=== PATIENT | male | born 1945 | race Caucasian/White ===

== ENCOUNTER 2017-09-17 12:36 | Day surgery (SDC) | payer MEDICARE, BC ==
[~2017-09-17] VITALS: Ht 172.8 cm; Wt 78.2 kg
[2017-09-17] VITALS (10 sets, daily range): BP systolic 110–123; BP diastolic 67–72; PULSE 56–94; TEMP 98
[~2017-09-17 12:36] MED LIST: ALDACTAZIDE 251 TAB PO; ASPIRIN 32325 MG/TAB PO; ASPIRIN 81M81 MG/TA2 PO; FLEXERIL10 MG PO; IMDUR 60MG60 MG/TAB PO; LIPITOR 80MG80 MG PO; LOPRESSOR 225 MG/TAB PO; MEDROL 4MG DOSPA4 MG PO; MULTIPLE VITAMI1 CAP PO; NITROSTAT0.4 MG/TAB SL; NO HOME MEDICATIONS; NORCO 325 MG-51 TAB PO; ONE DAILY1 TA1 PO; PEPCID 20MG TAB20 MG PO; PERCOCET 500 MG1 TAB PO; PLAVIX 75MG TAB75 MG PO; ZESTRIL2.5 MG PO
[2017-09-17 13:20] LABS: HEMATOCRIT 40.7 % (42.0-52.0); HEMOGLOBIN 13.6 g/dl (13.5-18.0); MEAN CELL VOLUME 90 fl (80.0-100.0); MEAN CORPUSCULAR HEMOGLOBIN 30 pg (27.0-31.0); MEAN CORPUSCULAR HGB CONC 33 g/dl (33.0-37.0); MEAN PLATELET VOLUME 9.8 fl (7.4-10.4); PLATELET COUNT 207 K/mm3 (130-400); RED BLOOD COUNT 4.53 M/mm3 (4.20-5.60); REDCELL DISTRIBUTION WIDTH-CV 12.7 % (11.5-14.5)
[2017-09-17 13:25] LABS: INR 1.2 (0.8-3.0); PROTHROMBIN TIME 13.2 SECONDS (9.7-12.8)
[2017-09-17 13:30] LABS: CALCIUM 9.3 mg/dL (8.4-10.2); CREATININE, serum 1.1 mg/dL (0.66-1.25); POTASSIUM 4.1 mmol/L (3.4-5.0)
== END 2017-09-17 18:22 | disposition home or self-care (01) ==
LOC: COL.CAR 12:36
PROVIDERS: Internal Medicine Interventional Cardiology
DX: I25.10 Atherosclerotic heart disease of native coronary artery without angina pectoris (principal); I21.4 Non-ST elevation (NSTEMI) myocardial infarction; I10 Essential (primary) hypertension; E78.5 Hyperlipidemia, unspecified; Z79.82 Long term (current) use of aspirin; Z79.01 Long term (current) use of anticoagulants; Z95.5 Presence of coronary angioplasty implant and graft; Z82.49 Family history of ischemic heart disease and other diseases of the circulatory system
CPT/HCPCS: J2250; J3010; Q9967

== ENCOUNTER 2018-07-19 02:39 | Emergency (ER) | payer MEDICARE, BC ==
[~2018-07-19] VITALS: Ht 172.7 cm; Wt 81.8 kg
[2018-07-19 02:44] VITALS: TEMP 97.8
[2018-07-19 03:11] LABS: BASO # 0.1 (0.0-0.2); BASO % 0.7 % (0.0-2.0); EOS # 0.4 (0.0-0.7); EOS % 5.6 % (0-4.0); GRAN # 2.8 (1.4-6.5); GRAN % 38.5 % (42.2-75.2); HEMATOCRIT 43.9 % (42.0-52.0); HEMOGLOBIN 14.4 g/dl (13.5-18.0); LYMPH # 3.1 (1.2-3.4); LYMPH % 41.6 % (20.0-51.0); MEAN CELL VOLUME 92 fl (80.0-100.0); MEAN CORPUSCULAR HEMOGLOBIN 30 pg (27.0-31.0); MEAN CORPUSCULAR HGB CONC 33 g/dl (33.0-37.0); MEAN PLATELET VOLUME 10.1 fl (7.4-10.4); MONO % 13.2 % (1.7-9.3); PLATELET COUNT 155 K/mm3 (130-400); RED BLOOD COUNT 4.77 M/mm3 (4.20-5.60); REDCELL DISTRIBUTION WIDTH-CV 12.7 % (11.5-14.5)
[2018-07-19 03:17] LABS: ALANINE AMINOTRANSFERASE 35 U/L (21-72); ALBUMIN 3.9 gm/dL (3.5-5.0); ALKALINE PHOSPHATASE 71 U/L (50-136); ANION GAP 9 mmol/L (7-16); AST,SGOT 34 U/L (15-37); BILIRUBIN,TOTAL 0.5 mg/dL (0.0-1.0); BLOOD UREA NITROGEN 15 mg/dL (9-20); CALCIUM 8.9 mg/dL (8.4-10.2); CARBON DIOXIDE 26 mmol/L (22-30); CHLORIDE 104 mmol/L (98-107); CREATININE, serum 0.97 mg/dL (0.66-1.25); GLUCOSE 95 mg/dL (74-106); LIPASE 143 U/L (23-300); POTASSIUM 4.1 mmol/L (3.4-5.0); SODIUM 138 mmol/L (137-145); TOTAL PROTEIN 7.2 gm/dL (6.4-8.2)
[2018-07-19 03:20] LABS: INR 1.1 (0.8-3.0); PROTHROMBIN TIME 12.6 SECONDS (9.7-12.8)
[2018-07-19 03:32] LABS: TROPONIN-I < 0.012 ng/mL (0.000-0.035)
[2018-07-19 12:19] VITALS: BP 131/81; PULSE 50
== END 2018-07-19 12:23 | disposition short-term general hospital (02) ==
LOC: COL.ER 02:39
PROVIDERS: Emergency Medicine
DX: R07.89 Other chest pain (principal); I25.10 Atherosclerotic heart disease of native coronary artery without angina pectoris; Z90.89 Acquired absence of other organs; Z79.82 Long term (current) use of aspirin; Z79.02 Long term (current) use of antithrombotics/antiplatelets; Z95.9 Presence of cardiac and vascular implant and graft, unspecified
CPT/HCPCS: J1644; J2270; J7030; Q9967

== ENCOUNTER → 2018-12-15 | Outpatient (CLI) | payer MEDICARE, BC | LOC: COL.RAD 09:03 | DX: C61 Malignant neoplasm of prostate (principal) | CPT/HCPCS: A9503 ==

== ENCOUNTER 2020-11-06 12:00 | Day surgery (SDC) | payer MEDICARE, BC ==
[~2020-11-06] VITALS: Ht 172.7 cm; Wt 79.6 kg
[2020-11-06] VITALS (10 sets, daily range): BP systolic 109–141; BP diastolic 61–83; PULSE 54–67; TEMP 98.8–99.2
[~2020-11-06 12:00] MED LIST changes: +CITRACAL + D CA1 TAB PO; +OMEGA-3 1000 MG1 CAP PO; +THE MEDICINE S200 M2 PO; +TOPROL XL100 MG PO; +VITAMIN E1000 U/CAP PO
[2020-11-06] MEDS ORDERED: LIPITOR 40MG TA40 MG PO (12:39)
--- NOTE | 2020-11-06 14:10 | NUR ---
Patient admitted to room 346. Alert & oriented. A little nervous about procedure. Med rec completed. Consent obtained, patient had talked to & verbalized understanding. Ivf started to Ivan. Raulito choe supervisoer started IV. Patietn supportice at bedside. Patient to Or with Or nurse Shala. Will await his return
--- NOTE | 2020-11-06 14:56 | NUR ---
Update given to patient son. Patient Npo 0000. Plans for Or tmrw afternoon, if he continues to have bleeding. Patient resting in bed.
[2020-11-06] MEDS ORDERED: BACTRIM DS 8001 TAB PO (15:05)
--- NOTE | 2020-11-06 17:49 | NUR ---
standing at bedside, denies pain or needs, has had something to eat and tolerated well
--- NOTE | 2020-11-06 19:36 | NUR ---
Patient tolerated dinner. Bragg to DD with orange tinged urine. All discharge paperwork completed. Vss, but O2 sats slightly decrreased. Report to night nurse Lorene
== END 2020-11-06 21:03 | disposition home or self-care (01) ==
LOC: SURG 12:00 → SDCO 12:00
DX: N99.113 Postprocedural anterior bulbous urethral stricture, male (principal); I10 Essential (primary) hypertension; E78.5 Hyperlipidemia, unspecified; I25.10 Atherosclerotic heart disease of native coronary artery without angina pectoris; I25.2 Old myocardial infarction; K21.9 Gastro-esophageal reflux disease without esophagitis; Z92.3 Personal history of irradiation; Z85.46 Personal history of malignant neoplasm of prostate; Z95.818 Presence of other cardiac implants and grafts; Z79.82 Long term (current) use of aspirin; Z79.02 Long term (current) use of antithrombotics/antiplatelets; Z79.899 Other long term (current) drug therapy
CPT/HCPCS: OP; C1769; C1894; J0690; J1100; J2405; J2704; J3010; J7120

== ENCOUNTER 2021-03-18 21:26 | Observation (INO) | payer MEDICARE, BC ==
[~2021-03-18] VITALS: Ht 172.7 cm; Wt 80.7 kg
[~2021-03-18 21:26] MED LIST changes: +BACTRIM DS 8001 TAB PO; +LIPITOR 40MG TA40 MG PO
[2021-03-18 22:36] LABS: COLLECTION METHOD IN
[2021-03-18 22:44] LABS: MUCOUS Present /lpf; PH 6 (5-8); SQUAMOUS EPITHELIAL None Seen /hpf; URINE APPEARANCE Clear; URINE BACTERIA None Seen /hpf; URINE BILIRUBIN Negative (NEGATIVE); URINE BLOOD 1+ (NEGATIVE); URINE COLOR Yellow; URINE GLUCOSE Negative (NEGATIVE); URINE KETONE Negative (NEGATIVE); URINE LEUKOCYTE ESTERASE Negative (NEGATIVE); URINE NITRATE Negative (NEGATIVE); URINE PROTEIN(semi-quant) Negative (NEGATIVE); URINE RBC 20-50 /hpf; URINE UROBILINOGEN Negative (NEGATIVE)
[2021-03-19 01:06] LABS: BASO # 0.1 K/mm3 (0.0-0.2); BASO % 0.7 % (0.0-2.0); EOS # 0.2 K/mm3 (0.0-0.7); GRAN # 5.2 K/mm3 (1.4-6.5); HEMATOCRIT 39.1 % (42.0-52.0); HEMOGLOBIN 13.2 g/dl (13.5-18.0); LYMPH # 1.3 K/mm3 (1.2-3.4); LYMPH % 16.6 % (20.0-51.0); MEAN CELL VOLUME 90 fl (80.0-100.0); MEAN CORPUSCULAR HEMOGLOBIN 30 pg (27.0-31.0); MEAN CORPUSCULAR HGB CONC 34 g/dl (33.0-37.0); MEAN PLATELET VOLUME 9.8 fl (7.4-10.4); MONO # 0.9 K/mm3 (0.1-0.6); MONO % 11.3 % (1.7-9.3); PLATELET COUNT 162 K/mm3 (130-400); RED BLOOD COUNT 4.34 M/mm3 (4.20-5.60); REDCELL DISTRIBUTION WIDTH-CV 13.1 % (11.5-14.5)
--- NOTE | 2021-03-19 01:24 | NUR ---
PT ADMITTED TO ROOM 342 FROM ER. PT AMBULATES TO BED WITH A STEADY GAIT. DENIES PAIN @ THIS TIME. IVF STARTED THROUGH PERIPHERAL IV IN RIGHT FA. PT IS ABLE TO URINATE A SMALL AMOUNT OF URINE INTO URINAL, [address] COLEY NOTIFIED OF PT ADMISSION. NEW ORDERS RECEIVED. PT IS TO REMAIN NPO FOR SURGERY LATER TODAY, PT VERBALIZES UNDERSTANDING. PT ORIENTED TO CALL LIGHT ET VISITOR RESTRICTIONS. DENIES OTHER NEEDS @ THIS TIME. CALL LIGHT WITHIN REACH. Patient care, medication administration and nursing documentation occurred during a Daylight Savings Time Change.
[2021-03-19 01:35] LABS: ALBUMIN 3.7 gm/dL (3.4-4.8); BILIRUBIN,TOTAL 0.6 mg/dL (0.2-1.2); CALCIUM 9.2 mg/dL (8.4-10.2); CREATININE, serum 1.01 mg/dL (0.72-1.25); POTASSIUM 4.1 mmol/L (3.5-4.5); TOTAL PROTEIN 6.5 gm/dL (6.2-8.1)
[2021-03-19 01:45] VITALS: BP 127/66; PULSE 52; TEMP 97.5
[2021-03-19 03:45] VITALS: BP 121/59; PULSE 63; TEMP 98
--- NOTE | 2021-03-19 04:40 | NUR ---
CLINICAL AIDE REPORTS THAT PT HAD VOIDED 200 ML. PT IS AWAKENED FOR BLADDER SCAN ET STATES THAT HE HAS VOIDED MORE SINCE CLINICAL AIDE LEFT ROOM. THERE IS 150 ML CLEAR YELLOW URINE IN URINAL. PT IS BLADDER SCANNED ET SHOWS POST VOID RESIDUAL OF 62 ML. PT STATES THAT HE FEELS THOUGH HE COULD STILL VOID SOME MORE. DENIES PAIN ET ABDOMEN IS SOFT TO PALPATE. PT DENIES OTHER NEEDS. CALL LIGHT WITHIN REACH.
--- NOTE | 2021-03-19 08:00 | NUR ---
DR.DEVINE DEMPSEY. PATIENT WAS ABLE TO VOID THROUGH THE NIGHT. EKG MANAGER REPORTS 400CC OF URINE OVERNIGHT. SURGERY CANCELED. SEE ORDERS.
--- NOTE | 2021-03-19 10:30 | NUR ---
PATIENT'S HERE. PATIENT GIVEN DISCHARGE INSTRUCTIONS. IV ALREADY DC'D THIS AM. PATIENT IS DRESSED, PACKED AND DISCHARGED VIA AMBULATORY TO PERSONAL VEHICLE WITH .
--- NOTE | 2021-03-19 11:49 | NUR ---
Late entry: Plan is to return home with Jade . will transport home. SW met with patient about care. Patient denies having an care concerns. [place] r[place]orts that they reside locally and alternate EMR contact is Shania Frias . POA is . PCP is Dr. Yoder last appointment a month ago. Also sees Dr. Sifuentes and obtains medications from [facility] at [facility]. No DME use noted. Educated on services available to him. NF>
== END 2021-03-19 10:30 | disposition home or self-care (01) ==
LOC: COL.ER 21:26 → SURG 03-19 00:31
PROVIDERS: Emergency Medicine; ADMIT Urology
DX: N35.819 Other urethral stricture, male, unspecified site (principal); I25.10 Atherosclerotic heart disease of native coronary artery without angina pectoris; E78.5 Hyperlipidemia, unspecified; I11.9 Hypertensive heart disease without heart failure; Z90.89 Acquired absence of other organs; Z85.46 Personal history of malignant neoplasm of prostate; Z79.82 Long term (current) use of aspirin; Z79.899 Other long term (current) drug therapy; Z79.02 Long term (current) use of antithrombotics/antiplatelets
CPT/HCPCS: G0378; J2270; J7030

== ENCOUNTER → 2021-04-20 | Outpatient (CLI) | payer MEDICARE, BC | LOC: COL.RAD 08:30 | DX: N35.819 Other urethral stricture, male, unspecified site (principal) | CPT/HCPCS: Q9967 ==

== ENCOUNTER 2023-05-02 00:17 | Inpatient (IN) | payer MEDICARE, BC ==
[~2023-05-02] VITALS: Ht 175.3 cm; Wt 88.8 kg
[2023-05-02] VITALS (208 sets, daily range): BP systolic 83–108; BP diastolic 51–86; PULSE 86–97; TEMP 98–99.4; O2SAT 92–99
[~2023-05-02 00:17] MED LIST changes: -ONE DAILY1 TA1 PO; +ONE-A-DAY MEN'S1 TAB PO
[2023-05-02 00:49] LABS: COLLECTION METHOD CLEAN CATCH
[2023-05-02 00:59] LABS: AMORPHOUS CRYSTAL Present (NOT PRESENT); PH 8.5 (5.0-8.5); SQUAMOUS EPITHELIAL 0-2 /hpf (0-10); URINE APPEARANCE Clear (CLEAR/HAZY); URINE BLOOD TRACE-INTACT (NEGATIVE); URINE COLOR Yellow (YELLOW); URINE GLUCOSE Negative (NEGATIVE); URINE KETONE Negative (NEGATIVE); URINE NITRATE Negative (NEGATIVE); URINE PROTEIN(semi-quant) TRACE (NEGATIVE); URINE RBC 0-2 /hpf (0-2); URINE UROBILINOGEN 0.2 E.U/dL (0.2-1.0)
[2023-05-02 01:00] LABS: URINE BACTERIA Rare /hpf (NONE SEEN)
[2023-05-02 01:06] LABS: BASO % 0.6 % (0.0-2.0); EOS # 0.1 K/mm3 (0.0-0.7); EOS % 1.7 % (0.0-4.0); GRAN # 6.4 K/mm3 (1.4-6.5); GRAN % 92.9 % (42.2-75.2); HEMOGLOBIN 13.2 g/dl (13.5-18.0); LYMPH # 0.3 K/mm3 (1.2-3.4); LYMPH % 3.8 % (20.0-51.0); MEAN CELL VOLUME 93 fl (80.0-100.0); MEAN CORPUSCULAR HEMOGLOBIN 31 pg (27-31); MEAN CORPUSCULAR HGB CONC 33 g/dl (33.0-37.0); MEAN PLATELET VOLUME 9.4 fl (7.4-10.4); MONO % 0.4 % (1.7-9.3); PLATELET COUNT 159 K/mm3 (130-400); RED BLOOD COUNT 4.31 M/mm3 (4.20-5.60); REDCELL DISTRIBUTION WIDTH-CV 12.3 % (11.5-14.5)
[2023-05-02 01:10] LABS: INR 1.2 (0.8-3.0); PROTHROMBIN TIME 13.1 SECONDS (9.7-12.8)
[2023-05-02 01:13] LABS: PARTIAL THROMBOPLASTIN TIME 25.8 SECONDS (26.0-37.0)
[2023-05-02 01:22] LABS: ALANINE AMINOTRANSFERASE 22 U/L (0-55); ALBUMIN 3.6 gm/dL (3.4-4.8); ALKALINE PHOSPHATASE 87 U/L (40-150); ANION GAP 11 mmol/L (7-16); AST,SGOT 22 U/L (5-34); BLOOD UREA NITROGEN 21 mg/dL (8-26); CALCIUM 9.1 mg/dL (8.4-10.2); CARBON DIOXIDE 23 mmol/L (23-31); CHLORIDE 105 mmol/L (98-107); CREATININE, serum 1.48 mg/dL (0.72-1.25); GLUCOSE 157 mg/dL (70-99); LIPASE 38 U/L (8-78); SODIUM 139 mmol/L (136-145)
[2023-05-02 01:27] LABS: TROPONIN-I < 0.010 ng/mL (0.00-0.033)
[2023-05-02 01:38] LABS: BILIRUBIN,TOTAL 0.5 mg/dL (0.2-1.2)
[2023-05-02 05:35] LABS: CALCIUM 8.6 mg/dL (8.4-10.2); CREATININE, serum 1.68 mg/dL (0.72-1.25); POTASSIUM 4.4 mmol/L (3.5-4.5)
--- NOTE | 2023-05-02 06:30 | NUR ---
Over the night the pt started have increase RR. Around 0220 the pt's RR was going into high 30's. The pt looked to be in distress and having increase effort in breathing. Pt's lung sounds were tight and had some crackles. Hospitalist was notified and RT was called. A chest XRAY was done. A BiPAP was placed on the pt and it was in CPAP mode at 25%. Dilaudid was given to help relex the pt and help with the pain in the abd and the bladder area. The RR then went to the 20's and the pt looked more relaxed. The pt's abd looked more distended and more firm throughout the night. Hospitalist was notified and GAS-X and milk of mag to help with what we were thinking is some gas pains that was in his upper quadrant. Pt still on the BIPAP at this time and SPO2 is in the 90's. Pt still on levophed in an 18 G peripheral IV. There were no signs of discolration, pulses were felt, and good cap refill throughout the night. Will recommend to have a PICC placed to day shift nurse that will take over. Pt's other vitals were stable throughout the night. Pt on CBI and currently running on bag 9. Will pass this onto the day shift nurse in report.
--- NOTE | 2023-05-02 10:55 | NUR ---
Patient to room 307 from the ED. Alert, but drowsy. at the bedside. VSS. Elevated temperature, doctor aware. IV CDI, fluids infusing. Denies pain and discomfort. Patient NPO. No further needs expressed. Call light within reach. Bed alarm on
[2023-05-02] MEDS ORDERED: TYLENOL 500MG500 MG PO (11:06)
--- NOTE | 2023-05-02 11:10 | NUR ---
DEBORAH Medrano notified of patients blood pressure and not setting up ARTIFICIAL PLASTIC EYE MAKER. DEBORAH Medrano hold ARTIFICIAL PLASTIC EYE MAKER and will monitor blood pressure.
[2023-05-02 20:43] LABS: MEAN CELL VOLUME 95 fl (80.0-100.0); MEAN CORPUSCULAR HGB CONC 32 g/dl (33.0-37.0); MEAN PLATELET VOLUME 10.6 fl (7.4-10.4); PLATELET COUNT 110 K/mm3 (130-400); RED BLOOD COUNT 3.41 M/mm3 (4.20-5.60); REDCELL DISTRIBUTION WIDTH-CV 13.2 % (11.5-14.5)
[2023-05-02 20:51] LABS: HEMATOCRIT 32.4 % (42.0-52.0); HEMOGLOBIN 10.5 g/dl (13.5-18.0); MEAN CORPUSCULAR HEMOGLOBIN 31 pg (27-31)
[2023-05-02 20:55] LABS: ALBUMIN 2.5 gm/dL (3.4-4.8); BILIRUBIN,TOTAL 0.6 mg/dL (0.2-1.2); CALCIUM 7.3 mg/dL (8.4-10.2); POTASSIUM 4.4 mmol/L (3.5-4.5); TOTAL PROTEIN 5.2 gm/dL (6.2-8.1)
[2023-05-03] VITALS (1086 sets, daily range): BP systolic 85–160; BP diastolic 52–82; PULSE 67–92; TEMP 97.7–98.1; O2SAT 71–100
--- NOTE | 2023-05-03 02:31 | NUR ---
Received report from Mary RN from medical floor at 1923. Pt arrived on unit at 1930 and received bedside report from ACCOUNTANT BOOKKEEPER. Pt was started on levophed at 1934 due to low BP. Pt's RR was in the 20's. Pt on LR for fluids. Was irrigating the crawford about Q30min due to little to no output and Dr. Parisi did not want to do CBI yet and did not want to remove the crawford to place a new one in for the CBI due to the pt having a procedure at [facility] on uretha. Pt complained of pain at a 6-7 out of 10 in the bladder area and was having soem distention upon arrival. Pt on 3 L O2 via NC upon arrival and sating in the 90's.
[2023-05-03 04:47] LABS: HEMOGLOBIN 10.8 g/dl (13.5-18.0); MEAN CELL VOLUME 96 fl (80.0-100.0); MEAN CORPUSCULAR HEMOGLOBIN 31 pg (27-31); MEAN CORPUSCULAR HGB CONC 32 g/dl (33.0-37.0); MEAN PLATELET VOLUME 10.5 fl (7.4-10.4); PLATELET COUNT 106 K/mm3 (130-400); RED BLOOD COUNT 3.51 M/mm3 (4.20-5.60); REDCELL DISTRIBUTION WIDTH-CV 13.4 % (11.5-14.5)
[2023-05-03 05:00] LABS: HEMATOCRIT 33.6 % (42.0-52.0)
[2023-05-03 05:03] LABS: ALBUMIN 2.5 gm/dL (3.4-4.8); BILIRUBIN,TOTAL 0.7 mg/dL (0.2-1.2); CALCIUM 7.4 mg/dL (8.4-10.2); CREATININE, serum 2.64 mg/dL (0.72-1.25); MAGNESIUM 1.3 mg/dL (1.6-2.6); PHOSPHOROUS 3.9 mg/dL (2.3-4.7); POTASSIUM 5.3 mmol/L (3.5-4.5); TOTAL PROTEIN 5.5 gm/dL (6.2-8.1)
[2023-05-03 06:27] LABS: BAND 42 % (0-10); LYMPHOCYTE 3 % (20.0-51.0); METAMYELOCYTE 3 % (0-0); NEUTROPHILS 50 % (42.0-75.2)
[2023-05-03 06:30] LABS: PLATELET ESTIMATE NORMAL (NORMAL)
--- NOTE | 2023-05-03 06:30 | NUR ---
Over the night the pt started tto have increased RR. Around 0220 the pt's RR was going into the high 30's. The pt looked to be in distress and having an increase effort in breathing. The pt's lung sounds were tight and had some crackles. Hospitalist was notified and RT was called. A chest XRAYU was done. A BiPAP was placed on the pt and it was in CPAP at 25%. Dilaudid was given to help relax the pt and help with the pain in the abd and the bladder area. The RR then went to the 20's and the pt looked more relaxed. The pt;s abd looked more distended and more firm throughout the night. Hospitalist was notified and GAS-X and milk of mag to help with what we were thinging is some gas pains that was in his upper quadrant of the abd. Pt is still on the BiPAP at this time and the SPO2 is in the 90's. Pt is still on levophed via the 18G peripheral IV. There wee no signs of discoloration, pulses were felt, and there were good cap. refill around the arm and area. Hospitalist knows about the levophed going through the peripheral IV at the rate it was running at throughout the night and wanted to want for a central line for the morning. Will recommend to have a PICC placed to day shift nurse that will take over. Pt's other vitals were stable throughout the night. Pt on CBI na currently running on bag 9. Will pass this onto the day shift nruse in report.
--- NOTE | 2023-05-03 06:55 | NUR ---
When pt arrived on the unit, shiftman hospitalist was giving pushes of epi. While levophed was being started. He gave 10 mcg IV boluses of epi x6. 10 mcg bolus of epi was given at 5, 1930, 193, 1944, 1952, and 1999.
--- NOTE | 2023-05-03 07:50 | NUR ---
Report recieved from TYRESE Sharma. Reviewed labs and IV gtts. Dr. Parisi arrived at bedside about 0730 and irrigated catheter. CBI infusing, bags 01/20 currently hanging. Red urine with clots noted. Pt on bipap intially, placed on 3L NC when Dr. Parisi arrived. Call light within reach. Will continue with POC.
--- NOTE | 2023-05-03 12:57 | NUR ---
wine cellar worker met with patient's spouse, Chan, as patient was using the rest room. Spouse states that patient is very independent with his activities of daily living and will return home upon discharge. Chan states that patient's primary care provider is Dr Yoder and that patient has Medicare A/B and BCBS as secondary. Spouse has been ill and states that she has family members arriving for the holidays. Chan denies concerns or unmet needs regarding discharge to home. Chan states that patient has advance directives and that they should be on file with the hospital. Discharge plan: Home with spouse.
--- NOTE | 2023-05-03 13:49 | NUR ---
Pt conitnueing to c/o abdominal pain after meds were given. Notified Dr Bryant again and new orders for xray and carafate received. EKG preformed and labs being drawn. Abdomin is distended, firm and tender to palpate. Pt up frequently to try and have BM. Pt had small, mucous BM without much relief. Awaiting results of xray and will call Dr. Bryant again.
--- NOTE | 2023-05-03 15:18 | NUR ---
Pt ambulated hallway with PT and this RN. Pt tolerated well, states he has some relief with ambulation and would like to ambulate again later.
--- NOTE | 2023-05-03 19:30 | NUR ---
RECEIVED REPORT FROM TYRESE ABREU. PATIENT CURRENTLY HAS CONTINUOUS BLADDER IRRIGATION GOING. PATIENT HAS LEVOPHED AND FLUIDS GOING IN 2 OF HIS 3 IV SITES. FAMILY IS AT BEDSIDE. UPDATE WAS GIVEN. CALL LIGHT WITHIN REACH. HYPOTENSIVE BUT VITAL SIGNS ARE OTHERWISE STABLE.
[2023-05-04] VITALS (661 sets, daily range): BP systolic 87–141; BP diastolic 50–76; PULSE 73–102; TEMP 98–98.6; O2SAT 80–100
[2023-05-04 05:43] LABS: HEMOGLOBIN 10.2 g/dl (13.5-18.0); MEAN CORPUSCULAR HEMOGLOBIN 31 pg (27-31); MEAN CORPUSCULAR HGB CONC 34 g/dl (33.0-37.0); MEAN PLATELET VOLUME 10.5 fl (7.4-10.4); PLATELET COUNT 83 K/mm3 (130-400); RED BLOOD COUNT 3.32 M/mm3 (4.20-5.60); REDCELL DISTRIBUTION WIDTH-CV 13.2 % (11.5-14.5)
[2023-05-04 05:46] LABS: HEMATOCRIT 30.2 % (42.0-52.0); MEAN CELL VOLUME 91 fl (80.0-100.0)
[2023-05-04 06:00] LABS: ALBUMIN 2.3 gm/dL (3.4-4.8); CALCIUM 8.2 mg/dL (8.4-10.2); CREATININE, serum 1.82 mg/dL (0.72-1.25); PHOSPHOROUS 2.6 mg/dL (2.3-4.7)
[2023-05-04 06:05] LABS: BAND 26 % (0-10); LYMPHOCYTE 4 % (20.0-51.0); NEUTROPHILS 67 % (42.0-75.2)
[2023-05-04 06:06] LABS: PLATELET ESTIMATE NORMAL (NORMAL)
--- NOTE | 2023-05-04 07:00 | NUR ---
Report received from TYRESE Melendez; patient currently up in chair with CBI in place. Patient is on levophed and IV fluids running through peripheral lines. Patient is on room air and has no other lines or tubes in place at this time. Patient's vital signs are within normal limits this morning.
[2023-05-04] MEDS ORDERED: PLAVIX 75MG TAB75 MG PO (10:14)
[2023-05-04] MEDS ORDERED: TOPROL XL100 MG PO (10:18)
--- NOTE | 2023-05-04 11:49 | NUR ---
Data: Patient's Family accepted Combination Machine Tender visit offered during Combination Machine Tender rounds. Assessment: Family (, Sister, Daughter) were in the ICU waiting area. They were waiting for information from the doctor. They sounded hopeful. recognizes a need for self-care. Plan of Care: Combination Machine Tender prayed for healing and for strength. Family was going to wait for information from the doctor. After speaking with the doctor, they all plan to go to the 's home for lunch. stated that she "needs a break from all of this."
--- NOTE | 2023-05-04 12:45 | NUR ---
Reported off to TYRESE Prabhakar; patient taken upstairs in wheelchair by TYRESE Prabhakar and a tech from the surgical floor. Patient remained on CBI and both bags that were hanging were accounted for in the I&Os; catheter bag was to be included once upstairs in new room. Patient was sent up with all belongings to room 327; patient's is aware of new room number. Patient was in stable condition and all vital signs were within normal limits upon transfer.
--- NOTE | 2023-05-04 17:34 | NUR ---
PATIENT STILL COMPLAINING OF RIGHT SIDED FLANK PAIN. PATIENT HAD R. STONE REMOVED ON THE , WAS SUCCESSFUL, BUT HAS REMAINED ON CBI DUE TO CYSTITIS, BLOOD AND CLOTTING IN URINE. PATIENT HAS ONLY PASSED ONE SMALL CLOT SINCE BEING ON SURGICAL FLOOR. NURSING GAVE 0.125MG OF LEVSIN FOR BLADDER SPASMS, AND 1 TAB PERCOCET. PATIENT IS NOW NAPPING IN RECLINER. PATIENT CALL LIGHT NEXT TO PATIENT.
[2023-05-05] VITALS (11 sets, daily range): BP systolic 107–133; BP diastolic 65–79; PULSE 81–99; TEMP 98–99.3
--- NOTE | 2023-05-05 06:36 | NUR ---
pt requiring levsin and percocet for spasms of severe pain, pt has been up to bathroom and walked in halls several times this shift, urine in crawford peach colored with occas. small clots, CBI continues, rate significantly slowed at beginning of shift. pt has had some episodes of wheezing, with ambulating, and has had increased BLE edema, fluids stopped, iv to INT.
--- NOTE | 2023-05-05 07:00 | NUR ---
PT RESTING IN THE CHAIR. PT IS ORIENTED BUT SLEEPY. PT STATES HE IS FEELING MUCH BETTER AFTER HIS PERCOCET. PT IS ON RA. PT IS SR ON TELE. PT'S CBI DRAINING PINK CLEAR URINE. PT HAS CALL LIGHT AND INSTRUCTED TO CALL WITH ALL NEEDS.
[2023-05-05 08:24] LABS: MEAN CELL VOLUME 91 fl (80.0-100.0); MEAN CORPUSCULAR HGB CONC 34 g/dl (33.0-37.0); MEAN PLATELET VOLUME 10.9 fl (7.4-10.4); PLATELET COUNT 88 K/mm3 (130-400); RED BLOOD COUNT 3.17 M/mm3 (4.20-5.60); REDCELL DISTRIBUTION WIDTH-CV 13.3 % (11.5-14.5)
[2023-05-05 08:26] LABS: HEMATOCRIT 28.8 % (42.0-52.0); HEMOGLOBIN 9.8 g/dl (13.5-18.0); MEAN CORPUSCULAR HEMOGLOBIN 31 pg (27-31)
[2023-05-05 08:41] LABS: ALBUMIN 2.2 gm/dL (3.4-4.8); CALCIUM 8.4 mg/dL (8.4-10.2); CREATININE, serum 1.52 mg/dL (0.72-1.25); PHOSPHOROUS 1.9 mg/dL (2.3-4.7); POTASSIUM 3.9 mmol/L (3.5-4.5)
[2023-05-05 09:10] LABS: BAND 19 % (0-10); EOSINOPHIL 5 % (0-4); LYMPHOCYTE 7 % (20.0-51.0); NEUTROPHILS 67 % (42.0-75.2); PLATELET ESTIMATE DECREASED (NORMAL)
[2023-05-05 09:12] LABS: HYPOCHROMIA 1+
--- NOTE | 2023-05-05 11:21 | NUR ---
1000-AFTER PT RETURNED TO ROOM FROM WALK, HE BEGAN COMPLAINING OF BLADDER SPASMS. PT AND CBI ASSESSED. CBI APPEARED TO NOT BE DRAINING. MERA MANUALLY IRRIGATED. MORE REDDENED URINE WITH CLOTS DRAINED. CBI RE-ATTACHED. MERA DRAINIG PINK URINE.
[2023-05-05 11:31] LABS: PARTIAL THROMBOPLASTIN TIME 26.6 SECONDS (26.0-37.0)
--- NOTE | 2023-05-05 15:17 | NUR ---
1330-AFTER PT AMBULATED TO THE RESTROOM HE COMPLAINED OF BLADDER SPASMS. CBI NO LONGER DRAINING WELL. MERA MANUALLY IRRIGATED AT LENGTH. 3-4 CLOTS REMOVED. CBI REPLACED AND MERA DRAINING CLEAR PINK URING. NOTIFIED OF ABOVE AND OF HEPARIN DRIP STARTING THIS AM. STATES TO CONTINUE TO MANUALLY IRRIGATE NEEDED.
--- NOTE | 2023-05-05 17:30 | NUR ---
PT'S XA LEVEL VERY LOW. CLARIFIED WITH Hayden ARREOLA BECAUSE PER PROTOCOL PT SHOULD HAVE A HEPARIN BOLUS AND INCREASE OF RATE. PER UROLOGY THEY DID NOT WANT AN INITIATION BOLUS. PER Hayden ARREOLA WILL NOT BOLUS BUT ONLY INCREASE RATE AND MONITOR XA.
--- NOTE | 2023-05-05 18:01 | NUR ---
PT UP TO RESTROOM FOR BM. MERA CATHETER CLOTTED OFF. PT BACK IN BED AND MANUALLY IRRIGATED AT LENGTH. TWO SMALL AND ONE LARGE CLOT REMOVED. CBI REATTACHED AND TITRATED. URINE NOW CLEAR PINK.
[2023-05-06] VITALS (11 sets, daily range): BP systolic 114–148; BP diastolic 62–79; PULSE 70–85; TEMP 98–99.3
--- NOTE | 2023-05-06 06:30 | NUR ---
URINE OUTPUT HAS CLEARED TO LIGHT YELLOW, CLEAR FLUID, PT WORRIED THAT HE "IS CLOGGED UP WITH CLOTS" IRRIGATED CATHETER WITH 20CC STERILE H2O, HAD 3 SMALL CLOTS OUT, URINE NOW PEACH COLORED. PT HAS BEEN UP IN RECLINER ALL SHIFT, WITH FEET ELEVATED, DECIDED TO LAY IN BED NOW WITH FEET UP. AND FEELING A LITTLE BETTER. PAIN CONTROLLED WITH PO PAIN MEDS.
--- NOTE | 2023-05-06 07:53 | NUR ---
Patient resting in bed. Up to the bathroom this am, did have Bm, but complaints of bladder spasms. He is not yet due for levsin or percoet. Flomax given and hand irrigation completed & vlots obtained and patient feeling better after. Breakfast order, patient denies nausea. Scs Ble. Awaiting labs results, will monitor heparin drip closely
[2023-05-06 07:57] LABS: BASO # 0.1 K/mm3 (0.0-0.2); BASO % 0.8 % (0.0-2.0); EOS # 0.5 K/mm3 (0.0-0.7); EOS % 4.2 % (0.0-4.0); GRAN # 8.9 K/mm3 (1.4-6.5); MEAN CELL VOLUME 91 fl (80.0-100.0); MEAN CORPUSCULAR HGB CONC 34 g/dl (33.0-37.0); MEAN PLATELET VOLUME 10.2 fl (7.4-10.4); MONO # 1.4 K/mm3 (0.1-0.6); MONO % 11.7 % (1.7-9.3); PLATELET COUNT 87 K/mm3 (130-400); RED BLOOD COUNT 3.15 M/mm3 (4.20-5.60); REDCELL DISTRIBUTION WIDTH-CV 13.5 % (11.5-14.5)
[2023-05-06 08:09] LABS: HEMATOCRIT 28.8 % (42.0-52.0); HEMOGLOBIN 9.7 g/dl (13.5-18.0); MEAN CORPUSCULAR HEMOGLOBIN 31 pg (27-31)
[2023-05-06 08:22] LABS: ALBUMIN 2.2 gm/dL (3.4-4.8); CALCIUM 8.5 mg/dL (8.4-10.2); CREATININE, serum 1.26 mg/dL (0.72-1.25); MAGNESIUM 1.8 mg/dL (1.6-2.6); POTASSIUM 3.8 mmol/L (3.5-4.5)
--- NOTE | 2023-05-06 08:30 | NUR ---
Heparin drip adjusted per protocol. Patient sleeping. Will monitor
--- NOTE | 2023-05-06 09:52 | NUR ---
Family at bedside, questions as answered. Patient sleeping, tolerated breakfast.
--- NOTE | 2023-05-06 18:17 | NUR ---
Patient resting in bed. He has been able to rest today comfortably. was at bedside throughout the day. Hand irrigation completed after being up to the bathroom this afternoon & clots obtained. Patient was able to walk the halls late this afternoon without any clotting issues. Cbi continues at a slow rate. Light pink to light yellow. Heparin drip as ordered, next hep x level scheduled for 2029. Report to be given to vika
[2023-05-07] VITALS (13 sets, daily range): BP systolic 116–151; BP diastolic 63–78; PULSE 73–89; TEMP 97.4–98.3
[2023-05-07 04:58] LABS: MEAN CELL VOLUME 91 fl (80.0-100.0); MEAN CORPUSCULAR HGB CONC 34 g/dl (33.0-37.0); MEAN PLATELET VOLUME 10.9 fl (7.4-10.4); PLATELET COUNT 95 K/mm3 (130-400); REDCELL DISTRIBUTION WIDTH-CV 13.6 % (11.5-14.5)
[2023-05-07 05:09] LABS: HEMATOCRIT 25.5 % (42.0-52.0); HEMOGLOBIN 8.6 g/dl (13.5-18.0); MEAN CORPUSCULAR HEMOGLOBIN 31 pg (27-31)
[2023-05-07 05:13] LABS: CALCIUM 8.4 mg/dL (8.4-10.2); CREATININE, serum 1.18 mg/dL (0.72-1.25); MAGNESIUM 1.7 mg/dL (1.6-2.6); PHOSPHOROUS 3.2 mg/dL (2.3-4.7); POTASSIUM 3.6 mmol/L (3.5-4.5)
[2023-05-07 05:49] LABS: BAND 14 % (0-10); EOSINOPHIL 7 % (0-4); LYMPHOCYTE 6 % (20.0-51.0); METAMYELOCYTE 1 % (0-0); NEUTROPHILS 62 % (42.0-75.2); PLATELET ESTIMATE NORMAL (NORMAL)
--- NOTE | 2023-05-07 06:20 | NUR ---
heparin gtt currently at 17 cc/hr per PIV in LAC. LFA INT patent/secure. next hepXa due at 1130. CBI running at a slower rate, urine mostly clear, yellow when pt stays in bed, however, when he gets up and walks to restroom and sits on stool for bowel movement, he will pass 2-3 dark, red, moderate sized clots, has happened twice this shift, pt wanted irrigated this am, RN irrigated crawford with 30 cc sterile h2o, no clots or blood noted. pain controlled with po percocet and levsin. decreased scrotal and BLE edema noted this am.
--- NOTE | 2023-05-07 18:08 | NUR ---
PT HAS SPONTANEOUSLY URINATED THROUGHOUT THE SHIFT WITHOUT ANY DIFFICULTY. HE DOES REPORT THAT HE FEELS LIKE HIS BLADDER SPASMS OCCUR WHEN HE INITIATES URINATION; HE HAS CHRONIC BLADDER SPASMS.
--- NOTE | 2023-05-07 19:03 | NUR ---
report received from mohini muñiz. pt resting in recliner with heparin running to left ac at 16ml/hr. pt tolerating well. pt denies pain at this time. pt reporting urination without issue. call light in reach. all needs met at this time.
--- NOTE | 2023-05-07 21:14 | NUR ---
pt hepxa resulted as 0.35. pt rate will continue as 16ml/hr per orders. pt remains asymptomatic without issue. call light in reach. all needs met at this time.
--- NOTE | 2023-05-07 23:43 | NUR ---
shift assessment complete, see documentation. pt requested prn percocet at 2200 with hs medications for 3/10 pain. pt also requested prn levsin for bladder spasms. pt stated both gave him relief. pt has completed iv abx. pt left ac iv int. heparin continues running at 16ml/hr without issue. pt ambulating well ind. call light in reach. all needs met at this time.
[2023-05-08] VITALS (13 sets, daily range): BP systolic 129–155; BP diastolic 65–83; PULSE 73–91; TEMP 97.7–98.7
[2023-05-08 03:10] LABS: MEAN CELL VOLUME 92 fl (80.0-100.0); MEAN CORPUSCULAR HGB CONC 33 g/dl (33.0-37.0); MEAN PLATELET VOLUME 10.8 fl (7.4-10.4); PLATELET COUNT 136 K/mm3 (130-400); RED BLOOD COUNT 3.13 M/mm3 (4.20-5.60); REDCELL DISTRIBUTION WIDTH-CV 13.5 % (11.5-14.5)
[2023-05-08 03:18] LABS: HEMATOCRIT 28.7 % (42.0-52.0); HEMOGLOBIN 9.4 g/dl (13.5-18.0); MEAN CORPUSCULAR HEMOGLOBIN 30 pg (27-31)
--- NOTE | 2023-05-08 03:41 | NUR ---
pt hepxa came back as 0.47. pt heparin running 15ml/hr per orders. pt still tolerating well without issue. call light in reach. all needs met at this time.
[2023-05-08 03:52] LABS: ALBUMIN 2.3 gm/dL (3.4-4.8); CALCIUM 8.8 mg/dL (8.4-10.2); MAGNESIUM 1.7 mg/dL (1.6-2.6); PHOSPHOROUS 3.6 mg/dL (2.3-4.7); POTASSIUM 3.5 mmol/L (3.5-4.5)
[2023-05-08 04:13] LABS: CREATININE, serum 1.24 mg/dL (0.72-1.25)
[2023-05-08 05:28] LABS: BAND 7 % (0-10); EOSINOPHIL 1 % (0-4); LYMPHOCYTE 11 % (20.0-51.0); METAMYELOCYTE 2 % (0-0); NEUTROPHILS 72 % (42.0-75.2); PLATELET ESTIMATE NORMAL (NORMAL)
--- NOTE | 2023-05-08 08:40 | NUR ---
contacted lab about pts 0800 hepxa lab draw, reported not obtaining lab due to pt ambulating in the halls. will be up to draw lab soon
--- NOTE | 2023-05-08 09:30 | NUR ---
lead web developer reported to this nurse that she is unable to draw hepxa due to unable to find vein, they reported to insurance sales supervisor to attempt blood draw.
--- NOTE | 2023-05-08 09:37 | NUR ---
stage set up worker completed IM from Medicare. SW provided copy to pt and original in chart.
--- NOTE | 2023-05-08 09:55 | NUR ---
pt a&ox3 resting in recliner. pt denies stool softeners this morning due to having diarrhea. vss and tele in place. pt requesting pain medication to be given around 1015. INT to left ac patent. INT to right forearm w heparin gtt infusing. pt denies needs at this time. call light in reach.
--- NOTE | 2023-05-08 11:47 | NUR ---
heparin gtt rate decreased by 1ml/hr, new rates is 14ml/hr.
--- NOTE | 2023-05-08 17:04 | NUR ---
brewery worker was notified by Dr. Martino, patient may benefit from home health services. SW will follow up with patient.
--- NOTE | 2023-05-08 19:07 | NUR ---
report received from tita muñiz. pt resting in bed. pt denies pain but c/o congestion. rt called for prn breathing treatment. call light in reach. all needs met at this time.
--- NOTE | 2023-05-08 21:22 | NUR ---
shift assessment complete, see documentation. pt denies pain, bloating, or difficulty urinating. pt ambulating ind without issue. pt tolerated hs meds well. call light in reach. all needs met at this time.
[2023-05-09] VITALS (7 sets, daily range): BP systolic 117–129; BP diastolic 56–64; PULSE 68–85; TEMP 98.1–99.1
--- NOTE | 2023-05-09 04:15 | NUR ---
pt ambulated halls ind multiple times tonight. pt denies pain but does have c/o bloating and discomfort. prn mylicon administered at 0301 per orders. pt now resting in bed, equal and unlabored breaths noted. call light in reach. all needs met at this time.
--- NOTE | 2023-05-09 05:59 | NUR ---
pt c/o pain. prn tramadol administered per orders. pt had a shower tonight and is now resting in bed. call light in reach. all needs met at this time.
[2023-05-09 07:14] LABS: MEAN CELL VOLUME 92 fl (80.0-100.0); MEAN CORPUSCULAR HGB CONC 34 g/dl (33.0-37.0); MEAN PLATELET VOLUME 10.4 fl (7.4-10.4); PLATELET COUNT 145 K/mm3 (130-400); RED BLOOD COUNT 2.73 M/mm3 (4.20-5.60); REDCELL DISTRIBUTION WIDTH-CV 13.5 % (11.5-14.5)
[2023-05-09 07:24] LABS: HEMOGLOBIN 8.4 g/dl (13.5-18.0); MEAN CORPUSCULAR HEMOGLOBIN 31 pg (27-31)
[2023-05-09 07:37] LABS: CALCIUM 8.2 mg/dL (8.4-10.2); CREATININE, serum 1.02 mg/dL (0.72-1.25); POTASSIUM 3.3 mmol/L (3.5-4.5)
--- NOTE | 2023-05-09 09:06 | NUR ---
pt a&ox4 resting in bed, at bedside. meds given and assessment complete. pt denies pain this morning. vss and tele in place. scds to ble. INT to right forearm and right ac are patent. pt denies needs at this time. call light in reach.
[2023-05-09] MEDS ORDERED: FLOMAX 0.40.4 MG/CAP PO (09:13)
[2023-05-09] MEDS ORDERED: LEVSIN0.125 M1 SL (09:13)
[2023-05-09] MEDS ORDERED: PROTONIX 40MG T40 MG PO (09:14)
[2023-05-09] MEDS ORDERED: CARAFATE 1GM1 G PO (09:15)
[2023-05-09] MEDS ORDERED: ULTRAM 50MG TAB50 MG PO (09:16)
--- NOTE | 2023-05-09 10:47 | NUR ---
machine farmworker met with interdisciplinary team during rounding. Dr. Martino recommended home health services for this patient. SW met with patient and provided the Medicare.gov list of options for Home Health. Patient expressed he was not interested in home health services at this time. SW expressed if he gets home and changes his mind, his PCP could send orders for home health to the agency of his choice. Patient understood. Discharge Plan: Home
--- NOTE | 2023-05-09 14:32 | NUR ---
discharge instructions given to pt and . all questions answered. pt wanting to have a breathing tx before discharge.
--- NOTE | 2023-05-09 15:15 | NUR ---
pt escorted to personal vehicle by wheelchair.
== END 2023-05-09 15:15 | disposition home or self-care (01) | DRG 659 ==
LOC: COL.ER 00:17 → MEDICAL 10:11 → ICU 10:13 → SURG 05-04 12:55
PROVIDERS: Emergency Medicine; Internal Medicine; Nurse Practitioner; Physical Therapist; Physician Assistant; Urology; ADMIT Internal Medicine
PROC: 0T768DZ Dilation of Right Ureter with Intraluminal Device, Via Natural or Artificial Opening Endoscopic (ICD-10-PCS; principal; 2023-05-02 16:30)
DX: N20.0 Calculus of kidney (principal); I21.A1 Myocardial infarction type 2; N17.9 Acute kidney failure, unspecified; I25.10 Atherosclerotic heart disease of native coronary artery without angina pectoris; Z95.5 Presence of coronary angioplasty implant and graft; E78.5 Hyperlipidemia, unspecified; K21.9 Gastro-esophageal reflux disease without esophagitis; I95.9 Hypotension, unspecified
CPT/HCPCS: C1769; C2617; J0612; J1170; J1644; J1885; J2270; J2371; J2405; J2543; J2704; J3010; J3475; J7030; J7040; J7060; J7120; Q9967

== ENCOUNTER 2023-05-20 10:56 | Inpatient (IN) | payer MEDICARE, BC ==
[~2023-05-20] VITALS: Ht 172.7 cm; Wt 76.8 kg
[~2023-05-20 10:56] MED LIST changes: +CARAFATE 1GM1 G PO; +FLOMAX 0.40.4 MG/CAP PO; +LEVSIN0.125 M1 SL; +PROTONIX 40MG T40 MG PO; +TYLENOL 500MG500 MG PO; +ULTRAM 50MG TAB50 MG PO
[2023-05-20 11:57] LABS: HEMOGLOBIN 11.3 g/dl (13.5-18.0); MEAN CELL VOLUME 94 fl (80.0-100.0); MEAN CORPUSCULAR HEMOGLOBIN 30 pg (27-31); MEAN CORPUSCULAR HGB CONC 32 g/dl (33.0-37.0); MEAN PLATELET VOLUME 9.2 fl (7.4-10.4); PLATELET COUNT 470 K/mm3 (130-400); RED BLOOD COUNT 3.77 M/mm3 (4.20-5.60)
[2023-05-20 12:04] LABS: HEMATOCRIT 35.4 % (42.0-52.0)
[2023-05-20 12:07] LABS: ALANINE AMINOTRANSFERASE 41 U/L (0-55); ALBUMIN 3.2 gm/dL (3.4-4.8); ALKALINE PHOSPHATASE 253 U/L (40-150); ANION GAP 12 mmol/L (7-16); AST,SGOT 30 U/L (5-34); BILIRUBIN,TOTAL 0.3 mg/dL (0.2-1.2); BLOOD UREA NITROGEN 14 mg/dL (8-26); CALCIUM 10.2 mg/dL (8.4-10.2); CARBON DIOXIDE 22 mmol/L (23-31); CHLORIDE 100 mmol/L (98-107); CREATININE, serum 1.37 mg/dL (0.72-1.25); GLUCOSE 145 mg/dL (70-99); SODIUM 134 mmol/L (136-145); TOTAL PROTEIN 8.7 gm/dL (6.2-8.1)
[2023-05-20 12:19] LABS: TROPONIN-I < 0.010 ng/mL (0.00-0.033)
[2023-05-20 12:35] LABS: COLLECTION METHOD CLEAN CATCH
[2023-05-20 12:39] LABS: BAND 1 % (0-10); BASOPHIL 1 % (0-2); EOSINOPHIL 6 % (0-4); LYMPHOCYTE 21 % (20.0-51.0); METAMYELOCYTE 1 % (0-0)
[2023-05-20 12:40] LABS: PLATELET ESTIMATE INCREASED (NORMAL)
[2023-05-20 12:41] LABS: NEUTROPHILS 51 % (42.0-75.2)
[2023-05-20 13:10] LABS: URINE COLOR Yellow (YELLOW)
[2023-05-20 13:17] LABS: URINE APPEARANCE Hazy (CLEAR/HAZY); URINE BLOOD 1+ (NEGATIVE); URINE GLUCOSE Negative (NEGATIVE); URINE KETONE TRACE (NEGATIVE); URINE NITRATE Negative (NEGATIVE); URINE PROTEIN(semi-quant) 2+ (NEGATIVE); URINE UROBILINOGEN 0.2 E.U/dL (0.2-1.0)
[2023-05-20 13:18] LABS: SQUAMOUS EPITHELIAL 0-2 /hpf (0-10); URINE BACTERIA Moderate /hpf (NONE SEEN)
[2023-05-20 17:30] VITALS: BP_SYST 134
[2023-05-20 18:08] VITALS: BP 126/70; PULSE 77; TEMP 98.1
--- NOTE | 2023-05-20 18:30 | NUR ---
Patient admitted to medical unit from ED. Patient awake, alert and oriented. States he has intermittent left flank pain, but states right now it is controlled. Able to move with minimal pain, steady on feet. Denies chest pain, shortness of breath, or nausea. quality assurance monitor in place. Med rec completed via the phone with the assistance of his . Bed in lowest position with call light within reach, denies further needs at this time.
[2023-05-20 19:13] VITALS: BP 134/77; PULSE 75; TEMP 98
--- NOTE | 2023-05-20 19:52 | NUR ---
Bedside report received from TYRESE Tang. Pt is currently awake in bed with no complaints. Call light within reach.
[2023-05-20 20:00] VITALS: BP_SYST 134
[2023-05-20 23:27] VITALS: BP 118/68; PULSE 82; TEMP 98.3
[2023-05-21] VITALS (12 sets, daily range): BP systolic 116–153; BP diastolic 69–76; PULSE 76–89; TEMP 97.5–98.2
--- NOTE | 2023-05-21 03:11 | NUR ---
CLOTHES WRINGER Lakshmi notifed of blood culture results by telephone. No new orders at this time.
--- NOTE | 2023-05-21 05:44 | NUR ---
Shift assessment completed. VSS. Pt has been awake for most of the night this shift. Pt uses suction for secretions. INT to Rt AC patent with no swelling, redness, or drainage. PEG tube patent with no redness, swelling or drainage. Pt has no complaints at this time. Call light within reach and fall precautions in place.
--- NOTE | 2023-05-21 05:47 | NUR ---
Shift assessment completed. VSS. Pt has slept most of the night this shift. Pt ambulated the hallway independently twice during the night. Pt has had reports of back pain and states that it is relieved with PRN Tyelnol. INT to Lt AC patent with no redness, swelling, or drainage. Pt has no complaints at this time. Call light within reach.
--- NOTE | 2023-05-21 06:45 | NUR ---
Bedside report given to TYRESE Brennan. Pt resting in bed at this time with no complaints. call light within reach.
[2023-05-21 08:12] LABS: ANION GAP 8 mmol/L (7-16); BLOOD UREA NITROGEN 12 mg/dL (8-26); CALCIUM 9.2 mg/dL (8.4-10.2); CARBON DIOXIDE 23 mmol/L (23-31); CHLORIDE 105 mmol/L (98-107); CREATININE, serum 1.11 mg/dL (0.72-1.25); GLUCOSE 103 mg/dL (70-99); MEAN CORPUSCULAR HGB CONC 34 g/dl (33.0-37.0); MEAN PLATELET VOLUME 9.2 fl (7.4-10.4); PLATELET COUNT 372 K/mm3 (130-400); POTASSIUM 4.2 mmol/L (3.5-4.5); RED BLOOD COUNT 3.13 M/mm3 (4.20-5.60); REDCELL DISTRIBUTION WIDTH-CV 13.1 % (11.5-14.5); SODIUM 136 mmol/L (136-145)
[2023-05-21 08:19] LABS: TROPONIN-I < 0.010 ng/mL (0.00-0.033)
[2023-05-21 08:21] LABS: HEMATOCRIT 27.8 % (42.0-52.0); HEMOGLOBIN 9.4 g/dl (13.5-18.0); MEAN CELL VOLUME 89 fl (80.0-100.0); MEAN CORPUSCULAR HEMOGLOBIN 30 pg (27-31)
--- NOTE | 2023-05-21 08:52 | NUR ---
Patient alert and oriented x4, complains of ongoing flank pain. PRN Tylenol administered. Shift assessment complete, wheezes noted to right side lung hansen, patient complains of pain with coughing. Appetite adequate, patient ate 100% of breakfast. Patient able to ambulate self, gait steady. Patient sitting up in recliner with call light in reach, all needs met at this time.
[2023-05-21 09:29] LABS: BAND 1 % (0-10); EOSINOPHIL 9 % (0-4); LYMPHOCYTE 16 % (20.0-51.0); NEUTROPHILS 62 % (42.0-75.2); PLATELET ESTIMATE NORMAL (NORMAL)
[2023-05-21 09:30] LABS: OVALOCYTES 1+
--- NOTE | 2023-05-21 17:52 | NUR ---
asbestos removal worker met with patient and his , Haley, P# [phone] to discuss discharge planning. PCP is Dr. Yoder and pharmacy is [facility]. No issues affording medications at this time. INsurance is Medicare A & B, BCBS. DPOA-HC is Haley. No DME. Reports to be independent with ADLS. Haley reports she is able to transport him to appointments. SW discussed home health services as patient is a readmit within a month. Patient reports he is not interested at this time. Patient would like to return home at time of discharge. Discharge plan: Home
--- NOTE | 2023-05-21 18:11 | NUR ---
Patient remains stable, has been ambulating at baseline throughout shift. Family at bedside. Voices no concerns at this time. Tolerating food and fluids well. No complaints of pain since this morning. Patient currently in recliner with call light in reach, all needs met at this time.
--- NOTE | 2023-05-21 20:30 | NUR ---
Initial shift assessment done- states having some back pain- Tylenol given,, no other requests, sitting up in chair , Up on his own, steady on feet. Tele on SR 92/min. Denies chest pain.
[2023-05-22] VITALS (12 sets, daily range): BP systolic 11–152; BP diastolic 66–78; PULSE 77–92; TEMP 97.5–98.2
--- NOTE | 2023-05-22 04:26 | NUR ---
States has slept better tonight than last night- VSS. No requests, Up to bathroom as needed, steady on feet.
[2023-05-22 07:09] LABS: MEAN CELL VOLUME 91 fl (80.0-100.0); MEAN CORPUSCULAR HEMOGLOBIN 30 pg (27-31); MEAN CORPUSCULAR HGB CONC 33 g/dl (33.0-37.0); MEAN PLATELET VOLUME 9.1 fl (7.4-10.4); PLATELET COUNT 382 K/mm3 (130-400); RED BLOOD COUNT 3.38 M/mm3 (4.20-5.60); REDCELL DISTRIBUTION WIDTH-CV 13.1 % (11.5-14.5)
[2023-05-22 07:13] LABS: HEMATOCRIT 30.6 % (42.0-52.0)
[2023-05-22 07:36] LABS: ALBUMIN 2.7 gm/dL (3.4-4.8); BILIRUBIN,TOTAL 0.3 mg/dL (0.2-1.2); CALCIUM 9.3 mg/dL (8.4-10.2); CREATININE, serum 1.16 mg/dL (0.72-1.25); MAGNESIUM 1.7 mg/dL (1.6-2.6); POTASSIUM 4.2 mmol/L (3.5-4.5); TOTAL PROTEIN 7.2 gm/dL (6.2-8.1)
--- NOTE | 2023-05-22 08:36 | NUR ---
Patient awake, alert and oriented. Denies chest pain currently, states he had some chest discomfort and left flank pain last night after coughing. Tolerating food well, denies nausea or shortness of breath. Steady on feet. In chair, visitor in room. Call light within reach.
[2023-05-22 08:38] LABS: BAND 1 % (0-10); EOSINOPHIL 12 % (0-4); HYPOCHROMIA 1+; LYMPHOCYTE 29 % (20.0-51.0); NEUTROPHILS 48 % (42.0-75.2)
[2023-05-22 08:39] LABS: PLATELET ESTIMATE NORMAL (NORMAL)
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
--- NOTE | 2023-05-22 18:43 | NUR ---
Patient alert throughout the day, denies chest pain throughout the day. Ambulating with minimal pain. In chair with family at the bedside, denies further needs at this time.
--- NOTE | 2023-05-22 20:30 | NUR ---
Initial shift assessment done- denies pain or SOB at this time, VSS, Up in halls, steady on feet, denies any issues- does not want a snack tonight. States will take some Tylenol closer to midnight when his antibiotic is due.
[2023-05-23 00:04] VITALS: BP_SYST 110
[2023-05-23 02:54] VITALS: BP 126/69; PULSE 85; TEMP 98.1
[2023-05-23 04:12] VITALS: BP_SYST 126
--- NOTE | 2023-05-23 04:38 | NUR ---
Quiet night-- did get some Tylenol around [place] - states some slight back pain- no other requests.
[2023-05-23 06:59] LABS: HEMOGLOBIN 10.3 g/dl (13.5-18.0); MEAN CELL VOLUME 89 fl (80.0-100.0); MEAN CORPUSCULAR HEMOGLOBIN 30 pg (27-31); MEAN CORPUSCULAR HGB CONC 34 g/dl (33.0-37.0); MEAN PLATELET VOLUME 8.9 fl (7.4-10.4); PLATELET COUNT 364 K/mm3 (130-400); RED BLOOD COUNT 3.44 M/mm3 (4.20-5.60); REDCELL DISTRIBUTION WIDTH-CV 13.1 % (11.5-14.5)
[2023-05-23 07:03] LABS: HEMATOCRIT 30.6 % (42.0-52.0)
[2023-05-23 07:07] LABS: CALCIUM 9.1 mg/dL (8.4-10.2); CREATININE, serum 1.3 mg/dL (0.72-1.25); POTASSIUM 4.4 mmol/L (3.5-4.5)
[2023-05-23 07:30] LABS: BAND 3 % (0-10); EOSINOPHIL 6 % (0-4); LYMPHOCYTE 30 % (20.0-51.0); METAMYELOCYTE 6 % (0-0); NEUTROPHILS 43 % (42.0-75.2)
[2023-05-23 07:31] LABS: PLATELET ESTIMATE NORMAL (NORMAL)
[2023-05-23 07:41] VITALS: BP 123/71; PULSE 75; TEMP 97.9
[2023-05-23 08:45] VITALS: BP_SYST 123
[2023-05-23] MEDS ORDERED: AMOXICILLIN 8751 TAB PO (09:32)
--- NOTE | 2023-05-23 10:29 | NUR ---
[employer] Student reviewed and completed Medicare IM form with patient at bedside. Copy of form made and provided to patient. Original copy put in patient's chart. [employer] Student also confirmed with patient that he is not interested in HH services at time of discharge. Patient expressed that this is still his preference. Discharge Plan: Home
--- NOTE | 2023-05-23 11:47 | NUR ---
Patient alert and oriented x4. Shift assessment complete, no new variances noted. Patient voiced no concerns other than discharge. Denies pain or discomfort. at bedside.
--- NOTE | 2023-05-23 12:02 | NUR ---
Discharge instructions discussed with patient including follow-up appointments, new medications, and education packets. Patient verbalized understanding. IV discontinued with no complications to left AC. Telemetry off. Patient escorted out by and staff via ambulation.
== END 2023-05-23 12:00 | disposition home or self-care (01) | DRG 872 ==
LOC: COL.ER 10:56 → MEDICAL 14:16
PROVIDERS: Emergency Medicine; Hospitalist; Physician Assistant; ADMIT Internal Medicine
DX: A41.9 Sepsis, unspecified organism (principal); N13.6 Pyonephrosis; N17.9 Acute kidney failure, unspecified; I50.20 Unspecified systolic (congestive) heart failure; E83.52 Hypercalcemia; I25.10 Atherosclerotic heart disease of native coronary artery without angina pectoris; Z95.5 Presence of coronary angioplasty implant and graft; D64.9 Anemia, unspecified; D69.6 Thrombocytopenia, unspecified; E78.5 Hyperlipidemia, unspecified; K21.9 Gastro-esophageal reflux disease without esophagitis; K59.00 Constipation, unspecified
CPT/HCPCS: J0692; J7030; Q9967